=== PATIENT | female | born 1960 | race Hispanic/Latino ===

== ENCOUNTER 2024-09-29 05:54 | Day surgery (SDC) | payer OTHER ==
[~2024-09-29] VITALS: Ht 160 cm; Wt 72.6 kg
[2024-09-29] VITALS (10 sets, daily range): BP systolic 163–190; BP diastolic 50–70; PULSE 65–80; RESP 12–16; TEMP 97.1–97.5
[2024-09-29] MEDS: 0.9% NACL 500ML IV.SOLN 500 ML IV ONE (06:42)
[2024-09-29] MEDS ORDERED: TRAMADOL PO (06:47)
[2024-09-29] MEDS ORDERED: IRBE300T26 PO (06:47)
[2024-09-29] MEDS ORDERED: ATOR40TA69 PO (06:47)
[2024-09-29] MEDS ORDERED: FERR-82 PO (06:47)
[2024-09-29] MEDS ORDERED: FURO40TA5 PO (06:47)
[2024-09-29] MEDS ORDERED: HYDR100T15 PO (06:47)
[2024-09-29] MEDS ORDERED: FISH1CAP63 PO (06:47)
[2024-09-29] MEDS ORDERED: BUPR-49 PO (06:47)
[2024-09-29] MEDS ORDERED: CLON1PAT14 TP (06:47)
[2024-09-29] MEDS ORDERED: DOXA4TAB3 PO (06:47)
[2024-09-29] MEDS ORDERED: FOLI0.8T22 PO (06:47)
[2024-09-29] MEDS ORDERED: PANT40TA54 PO (06:47)
[2024-09-29] MEDS ORDERED: LIDOCAINE HCL 1% 20 ML VIAL ONE (07:14)
[2024-09-29] MEDS ORDERED: proPOFol 10 MG/ML 20ML VIAL IV ONE (07:14)
--- NOTE | 2024-09-29 08:44 | NUR ---
FULL AND COMPLETE DISCHARGE INSTRUCTIONS GIVEN TO PATIENT AND FAMILY BOTH VERBALLY AND IN WRITING. vOICED UNDERSTANDING TO GI PROCEDURE PRECAUTIONS AND FOLLOW UP PIV REMOVED WITH CATHETER TIP INTACT. W/C WITH FAMILY TO POV TO HOME.
== END 2024-09-29 08:47 | disposition home or self-care (01) ==
LOC: SUH 05:54 → DAH 05:54 → SUH 08:47
PROVIDERS: ATTEND Internal Medicine Gastroenterology
DX: D50.9 Iron deficiency anemia, unspecified (principal); D12.6 Benign neoplasm of colon, unspecified; K57.30 Diverticulosis of large intestine without perforation or abscess without bleeding; I10 Essential (primary) hypertension; F41.9 Anxiety disorder, unspecified; F32.A Depression, unspecified; E11.9 Type 2 diabetes mellitus without complications; E78.2 Mixed hyperlipidemia; Z99.2 Dependence on renal dialysis; Z90.49 Acquired absence of other specified parts of digestive tract; Z90.710 Acquired absence of both cervix and uterus; Z98.890 Other specified postprocedural states
CPT/HCPCS: 82948 ×2; 45380; J7040; J2704; A4620; A4215 ×2; A4223; A4222; A4221; A4663; A4606; J3490